=== PATIENT | male | born 1955 | race Caucasian/White ===

== ENCOUNTER 2018-06-01 11:12 | Observation (INO) | payer OTHER ==
[~2018-06-01] VITALS: Ht 188 cm; Wt 89.4 kg
[2018-06-01] VITALS (13 sets, daily range): BP systolic 128–221; BP diastolic 75–115
[~2018-06-01 11:12] MED LIST: ABILIFY10 MG PO; ADULT LOW DOSE81 MG PO; AEROECLIPSE II1 EACH MC; ALBUTEROL2.5 MG/31 INH; ASPIRIN EC325 M1 PO; ATORVASTATIN CA40 MG PO; BRILINTA90 MG PO; COREG6.25 MG PO; CYCLOBENZAPRINE10 MG PO; DUONEB 2.5-0.5 M3 ML INH; EFFIENT10 MG PO; FLEXERIL PO; LEVAQUIN 500 M500 MG PO; LISINOPRIL10 MG PO; LISINOPRIL40 MG PO; NICOTINE TRANSD21 M1 TD; NITROGLYCERIN0.4 MG SL; PAXIL10 MG PO; PERCOCET 5-3251 EACH PO; PLAVIX 75 MG TA75 M1 PO; PRAVACHOL40 M1 PO; PRAVACHOL40 MG PO; PROAIR HFA8.5 GM PO; TRAMADOL 50 MG50 MG PO; ULTRAM 50MG TAB50 MG PO; VALIUM5 MG PO
[2018-06-01 11:43] LABS: ABSOLUTE BASOPHILS 0.1 thou/uL (0.0-0.2); ABSOLUTE EOSINOPHILS 0.8 thou/uL (0.0-0.7); ABSOLUTE LYMPHOCYTES 1.6 thou/uL (0.8-5.3); ABSOLUTE MONOCYTES 0.6 thou/uL (0.0-1.2); ABSOLUTE NEUTROPHILS 5.3 thou/uL (1.6-8.1); BASOPHILS 0.7 %; EOSINOPHILS 9.5 %; HEMATOCRIT 44.1 % (42.0-52.0); HEMOGLOBIN 15.5 gm/dL (14.0-18.0); LYMPHOCYTES 19.6 %; MCHC 35.2 g/dL (28.0-37.0); MONOCYTES 6.8 %; MPV 7.4 fl. (7.2-11.1); NUCLEATED RBCS 0 /100WBC; PLATELET COUNT* 188 thou/uL (150-400); POLYS 63.4 %; RBC 4.69 mil/uL (4.50-6.00); RDW-CV 13.6 % (10.5-14.5); WBC 8.4 thou/uL (4.0-11.0)
[2018-06-01 11:51] LABS: APTT 27.2 Seconds (25.0-31.3); PROTIME 10.2 Seconds (9.20-11.50)
[2018-06-01 12:03] LABS: CALCIUM 8.5 mg/dL (8.5-10.1); CREATININE 0.9 mg/dL (0.6-1.3)
[2018-06-01 12:08] LABS: CK-MB MASS 4.2 ng/mL (<0.5-3.6); MAGNESIUM 1.8 mg/dL (1.8-2.4); TOTAL BILIRUBIN 0.4 mg/dL (<0.1-1.0); TOTAL PROTEIN 6.4 g/dL (6.4-8.2); TROPONIN-I LEVEL 0.32 ng/mL (<0.06)
--- NOTE | 2018-06-01 15:37 | EKG ---
[place] [address] ELECTROCARDIOGRAM REPORT Name: CESAR LOPEZ Room: [address] M.R.#: [id number] Admission: 06/01/18 Attend Phys: Cesar Ramirez MD Discharge: Date of : 59 Report #: [id number] THIS REPORT FOR: //name// [facility] ED Test Date: 2018-06-01 Test Time: 11:18:53 Pat Name: CESAR LOPEZ Department: Room: [facility] Gender: M Operating Table Assembler: Jhonatan NGO RN : 1955 Requested By: Blas Martinez Order Number: [id number] MD: Evelio Bryson Measurements Intervals [place] Rate: 71 P: 21 [place]: 159 QRS: -3 QRSD: 94 T: 53 QT: 373 QTc: 406 Interpretive Statements Sinus rhythm Compared to ECG 09/09/2016 11:13:35 No significant changes Electronically Signed On 06-01-2018 15:37:18 CONFORMAL PAD FORMER by Evelio Bryson [email or web address] <ELECTRONICALLY SIGNED> By: Evelio Bryson MD, [facility] 06/01/18 1537 1118 1118 Evelio Bryson MD, FAC /EPI
--- NOTE | 2018-06-01 15:52 | CARD ---
[address] [address] CARDIAC CATH REPORT Name: CESAR LOPEZ Room: [address] [place]#: [id number] Admission: 06/01/18 Attend Phys: Cesar Ramirez MD Discharge: Date of : 59 Report #: [id number] THIS REPORT FOR: //name// APPROVED REPORT Study performed: 06/01/2018 12:17:35 Patient Details Patient Status: ED Room #: The patient is a 63 year-old male Event Personnel Evelio Bryson Human Service Technician, Mattie Hurst RN General Clerk, Janina Oswald Monitor, Bernard Reyez Scrub Procedures Performed Art Access - R femoral artery* , Selective Right and Left Coronary AngiographyLeft Heart Cath w/or w/o Coronaries [id number] LHC , Left VentriculogramDES Place w/wo Plasty Single DIAG 723579 PTCA Single Vessel LAD [id number] PCISINGLE , PTCA with Balloon Angioplasty, PTCA with Stenting Indication Unstable angina Risk Factors Hypercholesterolemia, Coronary Artery Disease Previous Procedures/Diagnoses Previous PCI Admission/Lab Medications/Medications given during procedure Aspirin, Platelet Aff. Inhib., Angiomax bolus and infusion Procedure Narrative The patient was brought electively to the Cardiac Catheterization Laboratory and was prepped and draped in a sterile manner. The right femoral was infiltrated with 2% Lidocaine subcutaneous anesthesia. A Howell 6 FR sheath was inserted into the right femoral artery. Coronary angiography was performed using coronary diagnostic catheters. The right coronary system was accessed and visualized with a 3DRC 5fr catheter. The left coronary system was accessed and visualized with a 6fr JL 4 catheter. The left ventricle was accessed and visualized with a 6fr Pigtail catheter. Left ventricular/Aortic Valve gradient assessed via catheter pullback[place] [address] CARDIAC CATH REPORT Name: CESAR LOPEZ Room: [address]#: [id number] Admission: 06/01/18 Attend Phys: Cesar Ramirez MD Discharge: Date of : 59 Report #: [id number] was performed in CORTEZ projection. Pre-demployment femoral angiogram was performed . Closure device was deployed with a 6 Fr 6fr Angioseal. The patient tolerated the procedure well and there were no complications associated with the procedure. There was no hematoma. Intraoperative Conscious Sedation Sedation start time: 12:56 Case end Time: 14:10 Fentanyl 100 mcg Versed 5 mg Fluoro Time: 22.2 minutes Dose: DAP 634614 cGycm2 3052.07 mGy Contrast Type and Amount: Visipaque 260 ml Coronary Angiography The patient's coronary anatomy is right dominant. Diagnostic Cath Left Main 0% narrowing LAD 40-50 % mid LAD narrowing after the takeoff of the first diagonal with 90% ostial proximal first diagonal stenosis; there was 40% distal LAD narrowing Circumflex 30% mid and distal circumflex narrowing Right Coronary Large dominant vessel with 30% mid vessel narrowing Left Ventriculography The left ventricle is normal in size with normal contractility. The left ventricular ejection fraction is estimated to be 60%. Left ventricular wall motion abnormalities are not present. There is no mitral insufficiency. Hemodynamics The aortic pressure is 134/64 mmHg with a mean of mmHg. The left ventricular pressure is 142/2 mmHg with a mean of mmHg. The left ventricular end diastolic pressure is 14 mmHg. There was no gradient across the aortic valve upon pullback. Pullback from the left ventricle to the aorta revealed no gradient across the aortic valve. PCI Technique Lesion Anticoagulation was achieved with Angiomax Drip. Patient was preloaded with Angiomax IV 13.5 mg per kg. Percutaneous coronary intervention was performed on the first diagnonal branch segment. The lesion stenosis prior to intervention was 90% with TYRON 3 flow. [place] 6[place] [address] CARDIAC CATH REPORT Name: CESAR LOPEZ Room: [address]#: [id number] Admission: 06/01/18 Attend Phys: Cesar Ramirez MD Discharge: Date of : 59 Report #: [id number] XB 3.5 100CM Guide Catheter was used to engage the ostium. A IG: ProwaterFlex 180CM Interventional Guidewire was used to cross the lesion. BALLOON DILATION A Balloon catheter Mini Trek RX 1.5 X 8 was inserted and inflated up to 14.00atm for 14seconds. Additional Inflation: 14.00atm for 7seconds. Additional Inflation: 14.00atm for 10seconds. STENT DEPLOYMENT A drug-eluting stent Sven RX Stent 2.0X15mm was inserted and inflated up to 8.00atm for 13seconds. Additional Inflation: 9.00atm for 9seconds. POST STENT DEPLOYMENT BALLOON DILATION A Balloon catheter NC Trek RX 2.0 X 8 was inserted and inflated up to 10.00atm for 10seconds. Additional Inflation: 12.00atm for 10seconds. Final angiography reveals 0 % stenosis with TYRON flow. PCI Technique Lesion 2 Percutaneous Coronary Intervention was performed on the mid left anterior descending artery segment. Percutaneous coronary intervention was performed on the mid LAD. A 6FR XB 3.5 100CM Guide Catheter was used to engage the ostium. A IG: BMW 190cm Interventional Guidewire was used to cross the lesion. Balloon Dilation A Balloon catheter NC Trek RX 3.0 X 12 was inserted and inflated up to 10.00atm for 10seconds. Additional Inflation: 14.00atm for 9seconds. Additional Inflation: 16.00atm for 14seconds. 12 PITA X 20 Seconds Final angiography reveals 0 % stenosis with TYRON 3 flow. Conclusion #1 significant coronary artery disease characterized by the following: A 40-50 % mid LAD in-stent narrowing with 90% ostial proximal first diagonal stenosis B 30% mid [place] [address] CARDIAC CATH REPORT Name: CESAR LOPEZ Room: [address] M.R.#: [id number] Admission: 06/01/18 Attend Phys: Cesar Ramirez MD Discharge: Date of : 59 Report #: [id number] C dominant right coronary artery with 30% mid vessel narrowing #2 normal left ventricular systolic function, estimate ejection fraction being 60% #3 minimal elevation of left ventricular end-diastolic pressure at rest #4 successful percutaneous coronary intervention with deployment of drug-eluting stent at the site of 90% ostial proximal first diagonal stenosis with 0% residual narrowing #5 successful percutaneous transluminal coronary angioplasty at the site of 50% mid LAD narrowing involving the takeoff of the first diagonal with 0% residual and TYRON-3 flow the distal LAD Recommendations Cardiac Risk Reduction Program Aggressive Medical Therapy Medications Administered Aspirin (any) Ticagrelor Diagnostic Cath Approved by: Evelio Bryson MD Date/Time: 06/01/2018 15:50:24 <ELECTRONICALLY SIGNED> By: Evelio Bryson MD, FAC 06/01/18 1551 1551 1551Evelio Bryson MD, FACC /INF
[2018-06-02] VITALS: BP 141/86
[2018-06-02 04:00] VITALS: BP 146/77
[2018-06-02 05:24] LABS: HEMATOCRIT 41.8 % (42.0-52.0); HEMOGLOBIN 14.7 gm/dL (14.0-18.0); MCH 32.9 pg (26.0-34.0); MCHC 35.1 g/dL (28.0-37.0); MCV 93.6 fL (80.0-100.0); MPV 7.6 fl. (7.2-11.1); RBC 4.46 mil/uL (4.50-6.00); RDW-CV 13.4 % (10.5-14.5); WBC 9.6 thou/uL (4.0-11.0)
[2018-06-02 06:10] LABS: ALBUMIN 2.6 g/dL (3.4-5.0); ALKALINE PHOSPHATASE 82 U/L (46-116); ANION GAP 7 mmol/L (7-16); BUN 13 mg/dL (7-18); CALCIUM 8.5 mg/dL (8.5-10.1); CHLORIDE 107 mmol/L (98-107); CHOLESTEROL 192 mg/dL (<200); CO2 27 mmol/L (21-32); CREATININE 0.8 mg/dL (0.6-1.3); GLUCOSE 102 mg/dL (70-99); HDL CHOLESTEROL 30 mg/dL (>40); LDL CHOLESTEROL 139 mg/dL (<100); POTASSIUM 4.3 mmol/L (3.5-5.1); SGOT 15 U/L (15-37); SGPT 24 U/L (30-65); SODIUM 141 mmol/L (136-145); TC:HDL 6.4 Ratio (Not establshd); TOTAL BILIRUBIN 0.3 mg/dL (<0.1-1.0); TOTAL PROTEIN 5.7 g/dL (6.4-8.2); TRIGLYCERIDE 115 mg/dL (<150); TROPONIN-I LEVEL 0.45 ng/mL (<0.06); VLDL 23 mg/dL (<40)
[2018-06-02 06:15] LABS: SERUM ASSESSMENT CLEAR
[2018-06-02 09:10] VITALS: BP 131/76
[2018-06-02 09:15] VITALS: BP 140/100
[2018-06-02 09:18] VITALS: BP 140/100
[2018-06-02] MEDS ORDERED: LIPITOR 40 MG T40 M1 PO (11:01)
[2018-06-02] MEDS ORDERED: BRILINTA90 MG PO (11:02)
[2018-06-02 11:04] VITALS: BP 140/100
--- NOTE | 2018-06-02 14:09 | CON ---
[address] [address] CONSULTATION Name: CESAR LOPEZ Room: [address] Abrahan Carrillo#: [id number] Admission: 06/01/18 Attend Phys: Cesar Ramirez MD Discharge: 06/02/18 Date of : 59 Report #: [id number] THIS REPORT FOR: //name// CC: Mingo Perry DATE OF SERVICE: 06/01/2018 INDICATION: Unstable angina. HISTORY OF PRESENT ILLNESS: The patient is a very pleasant gentleman with history of coronary artery disease. He has had previous coronary interventions on multiple occasions. The patient presents with 2 weeks of progressive midsternal chest discomfort that is worse with activity and associated with shortness of breath. He is not having resting symptoms. He denies any prolonged episodes of chest discomfort. He is without other cardiac complaints at this time. PAST MEDICAL HISTORY: 1. Coronary artery disease. 2. Hypertension. 3. Hyperlipidemia. 4. Moderate nonocclusive carotid vascular disease. 5. Chronic tobacco use. ALLERGIES: CODEINE AND PREDNISONE. CURRENT MEDICATIONS: Aspirin 81 mg daily, carvedilol 6.25 mg b.i.d., clopidogrel 75 mg daily, lisinopril/hydrochlorothiazide 10/12.5 one tablet daily, Nitrostat p.r.n., Paxil 10 mg daily, pravastatin 40 mg daily. FAMILY HISTORY: The patient's mother had heart disease. SOCIAL HISTORY: The patient is . He smokes a pack of cigarettes daily. He drinks alcohol once or twice weekly. REVIEW OF SYSTEMS: He reports of malaise and fatigue. He has chest pain as outlined above. He reports dyspnea on exertion, but no orthopnea or paroxysmal nocturnal dyspnea. He has occasional palpitations. He reports of cough. He has some lightheadedness and dizziness. Otherwise, 14-point review of systems unremarkable. PHYSICAL EXAMINATION: VITAL SIGNS: Stable. Blood pressure 144/84, heart rate is 80 [place] [address] CONSULTATION Name: LOPEZCESAR MEEHAN Christine Room: [address] [place]#: [id number] Admission: 06/01/18 Attend Phys: Cesar Ramirez MD Discharge: 06/02/18 Date of : 59 Report #: [id number] GENERAL: This is a pleasant gentleman, in no distress. Mood and affect appropriate. HEENT: Extraocular muscles intact. Mucous membranes moist. NECK: Shows no jugular venous distention. There are no carotid bruits. CHEST: Reveals clear lung huff without wheezes, rales or rhonchi. CARDIOVASCULAR: Reveals a regular rhythm with normal S1 and S2. I do not appreciate gallop or murmur. ABDOMEN: Reveals normal bowel sounds. The abdomen is soft and nontender. EXTREMITIES: Shows no edema. Peripheral pulses are 2+ and palpable. SKIN: Warm and dry. IMPRESSION AND RECOMMENDATIONS: 1. Coronary artery disease. Continue aspirin. 2. Unstable angina. The patient is being admitted for invasive evaluation. Further intervention pending the results of that study. 3. Hypertension. Continue current cardiovascular regimen as outlined above. Make adjustments as necessary. 4. Hyperlipidemia. Continue pravastatin. Consider repeat fasting lipid profile in the near future. 5. Tobacco use. Smoking cessation discussed and advised. <ELECTRONICALLY SIGNED> By: Cesar Ramirez MD, FACC 06/02/18 1409 1329 [id number] Ramirez MD, FACC /nt
--- NOTE | 2018-06-03 15:50 | D ---
[address] [address] DISCHARGE SUMMARY Name: CESAR LOPEZ Room: [address] Abrahan Carrillo#: [id number] Admission: 06/01/18 Attend Phys: Cesar Ramirez MD Discharge: 06/02/18 Date of : 59 Report #: [id number] THIS REPORT FOR: //name// CC: Mingo Ramirez MD DATE OF SERVICE: 06/02/2018 FINAL DISCHARGE DIAGNOSES: 1. Unstable angina. 2. Coronary artery disease. 3. Status post percutaneous coronary of the first diagonal branch to the LAD and the LAD itself. 4. Hypertension. 5. Hyperlipidemia. 6. Tobacco use. PROCEDURES: On 06/01/2018 -- left heart catheterization, left ventriculography, selective coronary arteriography, and percutaneous coronary intervention with stenting of the ostial proximal portion of the first diagonal with angioplasty of the mid LAD. The patient is a 63-year-old male with known coronary artery disease and prior stenting of the LAD with dilatation of the first diagonal. He has underlying hypertension, hyperlipidemia and tobacco use. He presented to the office with recurrent chest pain following a pattern of increasing frequency and severity of episodes of chest pain responsive to rest and sublingual nitroglycerin. This is compatible with unstable angina, and in that context, he underwent cardiac catheterization on 06/01/2018. That study revealed 90% ostial proximal first diagonal narrowing with 45-50% LAD in-stent narrowing at the site of the emanation of the first diagonal. Left ventricular function was normal with ejection fraction of 60%. He had no significant stenosis of the left main, circumflex or right coronary artery noted. Given this data, I elected to proceed with percutaneous coronary intervention, dilating through the LAD stent into the ostium of the first diagonal and deploying a 2.0 x 15 mm Sven drug-eluting stent in the proximal first diagonal with 0% residual narrowing. I then dilated the LAD at the site of emanation of the diagonal with a 3.0 x 12 mm NC Trek to 16 atmospheres with 0% residual narrowing. Thus, the patient had zero residual first diagonal [place] [address] DISCHARGE SUMMARY Name: CESAR LOPEZ Room: [address]#: [id number] Admission: 06/01/18 Attend Phys: Cesar Ramirez MD Discharge: 06/02/18 Date of : 59 Report #: [id number] narrowing with TYRON 3 flow of the distal circulation. He did well post-procedurally and there was good hemostasis at the right femoral site of catheterization. He ambulated in the hallways without difficulty. LABORATORY DATA: On 06/02/2018 revealed sodium of 141, potassium 4.3, BUN 13, creatinine 0.8, hemoglobin 14.7, white blood cell count 9600 with 172,000 platelets. Cholesterol 192, LDL 139, HDL 30, triglycerides 115 mg percent. He was discharged to home on the following medications: Aspirin 81 mg daily, carvedilol 6.25 mg b.i.d., Flexeril 10 mg t.i.d., lisinopril 10 mg daily, paroxetine or Paxil 40 mg daily, ticagrelor 90 mg b.i.d. with a loading dose of 180 mg given periprocedurally, and a change in statin to atorvastatin 40 mg daily from the previously used pravastatin. He was also admonished to stop cigarette smoking. The patient is scheduled to return to see our nurse practitioner, Aretha Almanza on 06/12/2018 at 11:30 and return to see Dr[address] Ramirez on 07/26/2018 at 15:40 hours. Thus, the patient is discharged to home in stable condition on the aforementioned medications with followup as iterated above. <ELECTRONICALLY SIGNED> By: Evelio Bryson MD, [facility] 06/03/18 1550 1029 1224Jojeaneth Bryson MD, FACC /nt
--- NOTE | 2018-06-03 16:29 | EKG ---
[place] [address] ELECTROCARDIOGRAM REPORT Name: ANITHA LOPEZ Room: [address]#: [id number] Admission: 06/01/18 Attend Phys: Anitha Ramirez MD Discharge: 06/02/18 Date of : 59 Report #: [id number] THIS REPORT FOR: //name// [facility] Test Date: 2018-06-01 Test Time: 15:44:34 Pat Name: ANITHA LOPEZ Department: Room: [facility] Gender: M Supervisor Sample: : 1955 Requested By: Evelio Bryson Order Number: [id number] Reading MD: Anitha Ramirez Measurements Intervals [place] Rate: 56 P: 40 SC: 158 QRS: 2 QRSD: 103 T: 40 QT: 424 QTc: 410 Interpretive Statements Sinus rhythm Ventricular premature complex Compared to ECG 06/01/2018 11:18:53 Ventricular premature complex(es) now present Electronically Signed On 06-03-2018 16:29:18 FACILITY ADMINISTRATOR by Anitha Ramirez [email or web address] <ELECTRONICALLY SIGNED> By: Anitha Ramirez MD, [facility] 06/03/18 1629 1544 1544 Anitha Ramirez MD, FAC /EPI
--- NOTE | 2018-06-03 16:33 | EKG ---
[place] [address] ELECTROCARDIOGRAM REPORT Name: CESAR LOPEZ Room: [address]#: [id number] Admission: 06/01/18 Attend Phys: Cesar Ramirez MD Discharge: 06/02/18 Date of : 59 Report #: [id number] THIS REPORT FOR: //name// [facility] Test Date: 2018-06-02 Test Time: 06:13:51 Pat Name: CESAR LOPEZ Department: Room: [facility] Gender: M [employer] Operator: : 1955 Requested By: Evelio Bryson Order Number: [id number] Jojo MD: Cesar Ramirez Measurements Intervals [place] Rate: 58 P: 43 TN: 161 QRS: 7 QRSD: 100 T: 41 QT: 421 QTc: 414 Interpretive Statements Sinus rhythm Compared to ECG 06/01/2018 11:18:53 No significant changes Electronically Signed On 06-03-2018 16:33:21 TOWEL DISTRIBUTOR by Cesar Ramirez [email or web address] <ELECTRONICALLY SIGNED> By: Cesar Ramirez MD, [facility] 06/03/18 1633 D: 02/612 2 Cesar Ramirez MD, FACC /EPI
== END 2018-06-02 11:40 | disposition home or self-care (01) ==
LOC: M.ERS 11:12 → M.TBA-CV 12:36 → M.2W 17:27
PROVIDERS: Family Medicine; Internal Medicine; ADMIT Internal Medicine Cardiovascular Disease
DX: I25.110 Atherosclerotic heart disease of native coronary artery with unstable angina pectoris (principal); I10 Essential (primary) hypertension; E78.5 Hyperlipidemia, unspecified; F17.210 Nicotine dependence, cigarettes, uncomplicated; Z79.899 Other long term (current) drug therapy; Z79.82 Long term (current) use of aspirin